=== PATIENT | female | born 1950 | race Two or more races ===

== ENCOUNTER 2019-04-07 14:12 | Emergency (ER) | payer OTHER ==
[~2019-04-07] VITALS: Ht 160 cm; Wt 54.4 kg
[2019-04-07] MEDS ORDERED: INSULIN SYRING1 EA29 SUBCUTANEO (14:28)
== END 2019-04-07 18:19 | disposition home or self-care (01) ==
LOC: ER 14:12
DX: S02.2XXA Fracture of nasal bones, initial encounter for closed fracture (principal); W18.09XA Striking against other object with subsequent fall, initial encounter; Y93.89 Activity, other specified; Y92.098 Other place in other non-institutional residence as the place of occurrence of the external cause; Y99.8 Other external cause status